=== PATIENT | female | born 1940 | race Caucasian/White ===

== ENCOUNTER → 2017-02-11 | Outpatient (CLI) | payer MEDICARE, BC ==
[~2017-02-11] MED LIST: B COTAB3 PO; CALC600T34 PO; PRIN10TA PO; TRAZ50TA78 PO; VITA500T10 PO
--- NOTE | 2017-02-11 10:29 | RADRPT ---
EXAM DATE/TIME: 02/11/2017 00:00 [place] COMPARISON: No previous studies available for comparison. INDICATIONS : Dysphagia, coughing , evaluate for aspiration FLUORO TIME: 1.5 minutes IMAGE COUNT: 0 CONTRAST: Dose as prescribed by speech pathologist. MEDICAL HISTORY : None. SURGICAL HISTORY : endoscopy with dilatation ENCOUNTER: Initial ACUITY: 2 months PAIN SCORE: 0/10 LOCATION: Bilateral esophagus FINDINGS: A modified barium swallow was performed with speech pathology. Patient was given a variety of liquids to swallow. For a full detailed report, see report by the speech pathologist. CONCLUSION: 1. No aspiration noted. See speech pathology report. Jsaon Trejo MD on February 11, 2017 at 10:27 Board Certified Radiologist. This report was verified electronically.
== END ==
LOC: HRAD 09:50
PROVIDERS: ATTEND Internal Medicine Gastroenterology
DX: R05 Cough (principal)
CPT/HCPCS: 74230; 92611; G8996; G8997; G8998